=== PATIENT | female | born 1945 | race Caucasian/White ===

== ENCOUNTER 2018-02-24 00:30 | Emergency (ER) | payer MEDICARE, OTHER ==
[~2018-02-24] VITALS: Ht 175.3 cm; Wt 74.8 kg
[~2018-02-24 00:30] MED LIST: ACYCLOVIR400 MG; L-METHYLFOLATE15 MG
[2018-02-24] MEDS ORDERED: DIPHENHYDRAMINE HCL INJ 50 MG/ML VIAL IM ONE (00:45)
[2018-02-24] MEDS ORDERED: METHYLPREDNISOLONE SOD SUCC 125 MG/2ML VIAL IM ONE (00:45)
== END 2018-02-24 01:15 | disposition home or self-care (01) ==
LOC: FSED 00:30
DX: L50.0 Allergic urticaria (principal); T61 Toxic effect of noxious substances eaten as seafood
CPT/HCPCS: 99283; J1200; J2930

== ENCOUNTER → 2025-02-16 | Day surgery (SDC) | payer MEDICARE ==
[2025-02-13 14:00] LABS: BASOPHILS % 0.8 % (0.0-1.0); EOSINOPHILS % 1.9 % (0.0-6.0); LYMPHOCYTES % 26.9 % (18.0-39.1); MONOCYTES % 8.0 % (4.4-11.3); NEUTROPHILS % 62.2 % (38.7-80.0); RED CELL DISTRIBUTION WIDTH 12.8 % (11.7-14.4)
[~2025-02-16] MED LIST changes: +ACETAMINOPHEN 1000 MG/100 ML 100 ML IV ONE; +ACETAMINOPHEN 1000 MG/100 ML IV PRN; +ASPIRIN 325 MG TAB PO SCH; +ASPIRIN81 MG PO; +B-COMPLEX1 EACH; +CALCIUM500 MG; +CBD; +CELECOXIB 100 MG CAP PO SCH; +COLLAGEN HYDROLY1 GM; +COQ1050 MG; +DEXAMETHASONE SOD PHOS INJ 4 MG/ML SDV ONE; +DIPHENHYDRAMINE HCL INJ 50 MG/ML VIAL IV PRN; +DOCUSATE SODIUM 100 MG CAP PO PRN; +EYE LUBRICANT OPTH OINT 3.5GM TUBE OP ONE; +FAMOTIDINE 20 MG/2 ML VIAL IV ONE; +FENTANYL CITRATE/PF 100MCG/2 ML INJ ONE; +FEROSUL325 MG PO; +FISH OIL 1,0001 EAC7; +HYDROCODONE/APAP 5MG-325MG TAB PO PRN; +HYDROCODONE/APAP 7.5MG-325MG 1 EA TAB ONE; +HYDROCODONE/APAP 7.5MG-325MG 1 EA TAB PO PRN; +K2 PLUS D3 TAB1 EACH; +LIDOCAINE HCL 2% LOCAL INJ 5 ML SDV VIAL INJ ONE; +LYSINE1000 MG; +MAGNESIUM GLYC100 MG; +ONDANSETRON HCL INJ 2MG/ML 2ML 2 MG/ML VIAL ONE; +PANTOPRAZOLE SO40 MG PO; +PRESERVISION A1 EAC5; +PROPOFOL IV EMULSION 10 MG/ML 20 ML VIAL ONE; +ROCURONIUM BROMIDE 1 ML IV ONE; +ROPIVACAINE/EPI/CLONIDINE/KET 50 ML SYRINGE INJ ONE; +SEVOFLURANE INHAL SOLN 250 ML PEN BTL ONE; +SODIUM CHLORIDE 0.9% 1000ML 1,000 ML IV SCH; +SUCCINYLCHOLINE CHLORIDE 20 MG/ML 10ML VIAL ONE; +SUGAMMADEX SODIUM 200 MG/2 ML VIAL IV ONE; +VALACYCLOVIR500 MG PO; +VITAMIN C1000 MG PO; +ZYRTEC10 M3
[2025-02-16] MEDS: CEFAZOLIN SODIUM 2 GM ONE (07:32)
[2025-02-16] MEDS: DEXAMETHASONE SOD PHOS 10 MG/1 ML VIAL ONE (07:32)
[2025-02-16] MEDS: LACTATED RINGER'S 1,000 ML ONE (07:32)
[2025-02-16] MEDS: GABAPENTIN 300 MG CAP ONE (07:32)
[2025-02-16] MEDS: CELECOXIB 200 MG CAP ONE (07:33)
[2025-02-16] MEDS: MEPERIDINE HCL INJ 25 MG/ML VIAL ONE (10:48)
[2025-02-16] MEDS: ONDANSETRON HCL INJ 2MG/ML 2ML 2 MG/ML VIAL IV PRN (11:32)
[2025-02-16] MEDS: HYDROCODONE/APAP 7.5MG-325MG 1 EA TAB PO ONE (11:45)
[2025-02-16 13:50] VITALS: BP 151/78; PULSE 65; RESP 15; O2SAT 98
== END | disposition home health service (06) ==
LOC: OR 06:48
PROVIDERS: ATTEND Specialist
DX: M16.11 Unilateral primary osteoarthritis, right hip (principal); M06.9 Rheumatoid arthritis, unspecified; K21.9 Gastro-esophageal reflux disease without esophagitis; Z88.0 Allergy status to penicillin; Z01.810 Encounter for preprocedural cardiovascular examination; Z01.812 Encounter for preprocedural laboratory examination; Z01.818 Encounter for other preprocedural examination; Z79.82 Long term (current) use of aspirin; Z79.899 Other long term (current) drug therapy; Z68.32 Body mass index [BMI] 32.0-32.9, adult
CPT/HCPCS: 27130; 36415; 71046; 72170; 85025; 86850; 86900; 93005; 97110; 97116; 97161; 97530; C1713 ×3; J0131; J1100 ×2; J1308; J2003; J2175; J2405; J2704; J3010; J7121; J0330